=== PATIENT | female | born 1960 | race Asian ===

== ENCOUNTER → 2023-12-14 | Outpatient (CLI) | payer BC ==
[~2023-12-14] MED LIST: Acidophilus La100 GM; B Complete1 EACH; CHOL10002; CODLIVC; DAILY MULTIPLE1 EACH; FLUT44OIA; MELA3 PO; OMEP20ER; TOCO400; UBID10; Vitamin C100 M1
== END | disposition home or self-care (01) ==
LOC: LAB SHORT 17:48 → LAB 17:48
DX: R39.15 Urgency of urination (principal)
CPT/HCPCS: 87086

== ENCOUNTER → 2024-08-22 | Outpatient (CLI) | payer BC ==
[2024-08-23 07:27] LABS: Bacterial Vaginosis PCR Negative (NEGATIVE); Candida Group, PCR NOT DETECTED (NOT DETECT); Candida glabrata-krusei, PCR NOT DETECTED (NOT DETECT)
== END ==
LOC: LAB SHORT 17:37
PROVIDERS: Internal Medicine
DX: N89.8 Other specified noninflammatory disorders of vagina (principal)
CPT/HCPCS: 87481; 87661; 87801